=== PATIENT | female | born 1970 | race African-American/Black ===

== ENCOUNTER 2017-05-15 19:22 | Emergency (ER) | payer OTHER ==
[~2017-05-15] VITALS: Ht 165.1 cm; Wt 90.0 kg
[~2017-05-15 19:22] MED LIST: LISI-363 PO
[2017-05-15 19:30] VITALS: BP 182/102; PULSE 87; RESP 15; TEMP 98.4; O2SAT 99
--- NOTE | 2017-05-15 19:33 | PD ---
Physical Exam Date Seen by Provider: May 15, 2017 Time Seen by Provider: 19:31 Narrative 46 yo female hat presents to the ED for evaluation of laceration of left 5th digit. Cannot see laceration due to it being wrapped. Pain is 8/10. Cut it less than 1 hour. No other injuries. Vitals are stable in triage. Awaiting bed placement. Data Data Last Documented VS Vital Signs Date Time Temp Pulse Resp B/P (MAP) Pulse Ox O2 Delivery O2 Flow Rate FiO2 05/15/17 19:30 98.4 87 15 182/102 (128) 99 Room Air [facility] Medical Record Reviewed: Yes Supervised Visit with THUAN: No Erik Mccracken May 15, 2017 19:33
[2017-05-15] MEDS ORDERED: LIDOCAINE HCL 2% 20 ML VIAL ONE (20:40)
[2017-05-15] MEDS: LIDOCAINE HCL 1% 50 ML VIAL INFIL ONE ×2 (20:41→20:42)
--- NOTE | 2017-05-15 20:43 | PD ---
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 This injury occurred prior to arrival. Pain is moderate. She states that she has not had a tetanus shot over 5 years. She was attempting to remove a piece of bottle assembler when it slipped. She states that he attempted to catch it but unfortunately stuck her left little finger into the slicer blade causing a laceration. The patient has a laceration to the lateral aspect of the finger. She denies any numbness or tingling. No focal weakness. No other medical complaints. [facility] Past Medical History Narrative Medical Denies diabetes Medical History: Denies Significant Hx Heart Rhythm Problems: No Cardiac Catheterization: No Cardiovascular Problems: No High Cholesterol: No Congestive Heart Failure: No Diabetes: No Diminished Hearing: No Heparin Induced Thrombocytopen: No Hypertension: Yes Immunizations Current: Yes Myocardial Infarction: No Tetanus Vaccination: Unknown Influenza Vaccination: No ?: Unknown Tubal Ligation: Yes Past Surgical History Surgical History: No Previous Surgery Coronary Artery Bypass Graft: No Family History Family Myocardial Infarction: No Social History Alcohol Use: Yes (SOCC) Tobacco Use: Yes (1/2 PPD) Substance Use: Yes (WEED) Allergies-Medications (Allergen,Severity, Reaction): Coded Allergies: No Known Allergies (Verified , 05/15/17) Reported Meds & Prescriptions Reported Meds & Active Scripts Active Ibuprofen 600 Mg Tab 600 Mg PO Q8H PRN 10 Days Lisinopril 20 mg (Lisinopril) 20 Mg Tab 1 Tab PO DAILY 30 Days Review of Systems Except as stated in HPI: all other systems reviewed are Neg Physical Exam Narrative GENERAL: This is a well-nourished, well-developed patient, in no apparent distress. SKIN: No rashes, ecchymoses or lesions. Warm and dry. HEAD: Atraumatic. Normocephalic. EYES: PERRL, EOMI, no discharge or injection. No scleral icterus. EARS: Clear NOSE: Nasal turbinates appear normal. THROAT: Mucosa pink and moist. Airway patent. NECK: Trachea midline. supple, moves head freely. LUNGS: Clear to auscultation. CV: Regular in rhythm. ABDOMEN: Soft nontender. EXT: No clubbing cyanosis or edema. Patient has a 7 mm x 4 cm avulsion laceration to the lateral aspect of the left little finger from the proximal phalanx distally down to the proximal aspect of the distal phalanx. This goes into the subcutaneous tissues. There is no exposed nerve or blood vessel. Patient is able to fully extend and flex her finger. Intact gross sensation. Good Refill. No tendon or joint injury. Data Data Last Documented VS Vital Signs Date Time Temp Pulse Resp B/P (MAP) Pulse Ox O2 Delivery O2 Flow Rate FiO2 05/15/17 19:30 98.4 87 15 182/102 (128) 99 Room Air Orders Orders Lidocaine 1% Inj (50 Ml) (Xylocaine 1% I (05/15/17 20:45) Bupivacaine Pf 0.5% Inj (Marcaine Pf 0.5 (05/15/17 20:45) Lidocaine 2% Inj (Xylocaine 2% Inj) (05/15/17 20:40) MDM Medical Decision Making Medical Screen Exam Complete: Yes Emergency Medical Condition: Yes Medical Record Reviewed: Yes Differential Diagnosis MDM: High Differential diagnoses: Fracture, sprain, strain, dislocation, contusion, neurovascular injury Narrative Course Patient is aware that this laceration will take up to 2 months to heal. The wound will have to granulate in secondarily. The patient is given tetanus immunization. Patient's given a digital block and a chemical hemostat is applied. Patient is placed in a large bulky dressing. This is left little finger laceration Procedures Procedure Narrative Left little finger laceration: Patient is given a digital block with 1% lidocaine and 0.5% Marcaine. After adequate anesthesia. Fingers prepped and draped in usual sterile fashion. Chemical hemostat Gelfoam applied with hemostasis. A large bulky dressing is applied. Patient tolerated procedure well without complications. Diagnosis Primary Impression: Laceration of left little finger Qualified Codes: S61.217A - Laceration without foreign body of left little finger without damage to nail, initial encounter Patient Instructions: General Instructions Departure Forms: Tests/Procedures, Work Release Special Instructions: No use of the left hand for 1 week. Additional Instructions: Rest. Elevation. Keep the finger clean and dry for the next 2 days. After 2 days he may remove the dressing and perform local wound care with soap, water, Neosporin. Ibuprofen for pain. Keep her hand clean and dry at all times. Anticipate your wound to heal over the next 2 months. Have your wound recheck workman's comp within 1 week. Return to the ER for any problems. Med/Other Pt SpecificInfo: Wound Care Scripts Ibuprofen (Ibuprofen) 600 Mg Tab 600 MG PO Q8H Y for PAIN for 10 Days, #30 TAB 0 Refills Prov: Domingo Pabon MD 05/15/17 Disposition: 01 DISCHARGE HOME Condition: Stable Moe Griffin May 15, 2017 20:43
[2017-05-15] MEDS ORDERED: IBUP-232 PO (20:44)
[2017-05-15] MEDS ORDERED: BUPIVACAINE HCL PF 0.5% 30 ML VIAL INFIL ONE (20:45)
[2017-05-15] MEDS ORDERED: GELATIN 12 MM/7 MM FOAM TOPICAL ONE (21:00)
== END 2017-05-15 21:45 | disposition home or self-care (01) ==
LOC: NEPK 19:22
DX: S61.217A Laceration without foreign body of left little finger without damage to nail, initial encounter (principal); W31.89XA Contact with other specified machinery, initial encounter; Y93.89 Activity, other specified; Y99.0 Civilian activity done for income or pay
CPT/HCPCS: 64450

== ENCOUNTER 2017-12-18 19:51 | Emergency (ER) | payer OTHER ==
[~2017-12-18] VITALS: Ht 165.1 cm; Wt 87.5 kg
[2017-12-18 19:51] VITALS: BP 168/91; PULSE 100; RESP 18; TEMP 98.4; O2SAT 98
[~2017-12-18 19:51] MED LIST changes: +IBUP-232 PO
--- NOTE | 2017-12-18 20:03 | PD ---
HPI Chief Complaint: Injury Time Seen by Provider: 20:00 Travel History International Travel<30 days: No Contact w/Intl Traveler<30days: No Traveled to known affect area: No History of Present Illness HPI Patient comes emergency department complaining of right fourth toe pain that began 2 days ago after she accidentally kicked the corner of the couch. Patient describes pain as throbbing-like in nature and radiates proximally. Pain is worse with walking and palpation. Patient is tried icing and using over -the-counter ibuprofen with little no improvement of pain. Severity is mild. PFSH Past Medical History Heart Rhythm Problems: No Cardiac Catheterization: No Cardiovascular Problems: No High Cholesterol: No Congestive Heart Failure: No Diabetes: No Diminished Hearing: No Heparin Induced Thrombocytopen: No Hypertension: Yes Immunizations Current: Yes Myocardial Infarction: No Tetanus Vaccination: < 5 Years ?: Not Tubal Ligation: Yes Past Surgical History Surgical History: No Previous Surgery Coronary Artery Bypass Graft: No Social History Alcohol Use: Yes (SOCC) Tobacco Use: Yes (1/2 PPD) Substance Use: Yes (OCCASIONAL MARIJUANA) Allergies-Medications (Allergen,Severity, Reaction): Coded Allergies: No Known Allergies (Verified , 05/15/17) Reported Meds & Prescriptions Reported Meds & Active Scripts Active Naprosyn (Naproxen) 500 Mg Tab 500 Mg PO Q12HR PRN Ibuprofen 600 Mg Tab 600 Mg PO Q8H PRN 10 Days Lisinopril 20 mg (Lisinopril) 20 Mg Tab 1 Tab PO DAILY 30 Days Review of Systems Except as stated in HPI: all other systems reviewed are Neg Physical Exam Narrative GENERAL: Well-developed, overly nourished, in no acute distress, and non-ill appearing. SKIN: Focused skin assessment warm and dry. HEAD: Atraumatic. Normocephalic. EYES: Pupils equal and round. EOMI. No scleral icterus. No injection or drainage. ENT: No nasal bleeding or discharge. Mucous membranes pink and moist. NECK: Trachea midline. Supple. No nuclear rigidity. CARDIOVASCULAR: Dorsal pulses 2+, intact, and equal bilaterally. Capillary refill less than 2 seconds. RESPIRATORY: No accessory muscle use. No respiratory distress. MUSCULOSKELETAL: No obvious deformities. No clubbing. No cyanosis. No edema. Full range of motion. Patient reports tenderness to palpation over proximal phalanx right fourth toe. No crepitus. Minimal soft tissue swelling noted. Full range of motion with flexion, extension, abduction, adduction of toes and equal bilaterally. NEUROLOGICAL: Awake and alert. No obvious cranial nerve deficits. Motor grossly within normal limits. Normal speech. PSYCHIATRIC: Appropriate mood and affect; insight and judgment normal. Data Data Last Documented VS Vital Signs Date Time Temp Pulse Resp B/P (MAP) Pulse Ox O2 Delivery O2 Flow Rate FiO2 12/18/17 19:55 Room Air 12/18/17 19:51 98.4 100 18 168/91 (116) 98 Orders Orders Toe (Min 2vws) (12/18/17 ) Splint Or Brace Apply/Monitor (12/18/17 20:19) [employer] Request For Service (12/18/17 20:19) Ed Discharge Order (12/18/17 20:19) Shoe Cast (12/18/17 ) [facility] Medical Decision Making Medical Screen Exam Complete: Yes Emergency Medical Condition: Yes Interpretation(s) X-ray reviewed shows a fracture of the proximal phalanx of fourth toe. Radiologist to over read. Differential Diagnosis Fracture, sprain, contusion, dislocation Narrative Course The patient sustained a fracture of the toe. The distal extremity appears neurovascularly intact, without evidence of neurovascular injury nor compartment syndrome. Tendon exam also was intact. The effected toe was splinted. The patient was discharged on pain medication along with fracture and splint care instructions and given warnings for vascular compromise. The patient is to follow up with insurance account manager. The patient agrees with plan. Patient in no obvious distress upon re-evaluation. All pertinent Radiology result(s) discussed with patient. Patient was asked if they wanted to speak to my attending, which the patient did not wish to do at this time. Any questions/ concerns in reference to patient diagnosis/condition discussed and clarified prior to patient's discharge. Reinforced sheer importance of close follow up with patient's primary physician or primary care clinic and/or podiatry. Instructed patient to return to ED immediately, if symptoms return/worsen. Patient showed understanding of above instructions. Further instructions and recommendations were detailed in discharge paperwork. Patient ambulated without difficulty out of ED at discharge. Diagnosis Primary Impression: Toe fracture, right Qualified Codes: S92.511A - Displaced fracture of proximal phalanx of right lesser toe(s), initial encounter for closed fracture Referrals: Logan Delgado DPM Patient Instructions: General Instructions, Toe Fracture (ED) Departure Forms: Work Release Enter return to work date: December 20, 2017 Additional Instructions: Follow-up with your primary care physician and/or insurance account manager 2448 hrs. for reevaluation. Take all medication as prescribed. Naseem tape toe and wear postop shoe until reevaluated by insurance account manager. Apply ice to affected area 20 min/ h as needed for pain. Return to the emergency department if symptoms get worse. Med/Other Pt SpecificInfo: Prescription(s) given Scripts Naproxen (Naprosyn) 500 Mg Tab 500 MG PO Q12HR Y for PAIN SCALE 1 TO 10, #14 TAB 0 Refills Prov: Micky Cobos MD 12/18/17 Disposition: 01 DISCHARGE HOME Condition: Stable Gabino Smith December 18, 2017 20:03
[2017-12-18] MEDS ORDERED: NAPR500 PO (20:22)
--- NOTE | 2017-12-18 21:13 | RADRPT ---
EXAM DATE/TIME: 12/18/2017 20:07 [facility] COMPARISON: No previous studies available for comparison. INDICATIONS : Right foot, 4th digit pain after stubbing toe. MEDICAL HISTORY : None. SURGICAL HISTORY : None. ENCOUNTER: Initial ACUITY: 2 days PAIN SCORE: 8/10 LOCATION: Right foot,4th digit. FINDINGS: Examination reveals a mildly displaced primarily longitudinal oblique fracture involving the majority of the diaphyseal portion of the fourth toe proximal phalanx. The adjacent articulations appear yair sly intact. CONCLUSION: Mildly displaced oblique fracture of the fourth toe proximal phalanx. Gonzales Golden MD on December 18, 2017 at 21:09 Board Certified Radiologist. This report was verified electronically.
== END 2017-12-18 20:42 | disposition home or self-care (01) ==
LOC: NEPK 19:51
DX: S92.511A Displaced fracture of proximal phalanx of right lesser toe(s), initial encounter for closed fracture (principal); W22.03XA Walked into furniture, initial encounter
CPT/HCPCS: 73660; 99283; L3260

== ENCOUNTER 2018-01-19 18:22 | Emergency (ER) | payer OTHER ==
[~2018-01-19] VITALS: Ht 66 cm; Wt 91.0 kg
[~2018-01-19 18:22] MED LIST changes: +NAPR500 PO
[2018-01-19 18:27] VITALS: BP 155/91; PULSE 99; RESP 18; TEMP 98.8; O2SAT 99
== END 2018-01-19 19:11 | disposition left against medical advice (07) ==
LOC: NED 18:22
DX: M79.646 Pain in unspecified finger(s) (principal); Z53.21 Procedure and treatment not carried out due to patient leaving prior to being seen by health care provider
CPT/HCPCS: 99281

== ENCOUNTER 2018-01-19 19:31 | Emergency (ER) | payer OTHER ==
[~2018-01-19] VITALS: Ht 165.1 cm; Wt 93.4 kg
[2018-01-19 19:34] VITALS: BP 148/92; PULSE 90; RESP 18; TEMP 98.5; O2SAT 98
--- NOTE | 2018-01-19 20:41 | PD ---
HPI Chief Complaint: Laceration/Skin Injury Time Seen by Provider: 19:53 Travel History International Travel<30 days: No Contact w/Intl Traveler<30days: No Traveled to known affect area: No History of Present Illness HPI 47-year-old female here with laceration to the right thumb. She reports well during this is she cut the thumb on the edge of a chipped glass. Does not believe there is any retained foreign body. She is full range of motion and normal sensation of the thumb. She has pain at the site of the laceration which is mild to moderate in severity. No aggravating or alleviating factors. Tetanus immunization is up-to-date. 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 Tubal Ligation: Yes Past Surgical History Coronary Artery Bypass Graft: No Social History Alcohol Use: Yes (SOCC) Tobacco Use: Yes (1/2 PPD) Substance Use: Yes (OCCASIONAL MARIJUANA) Allergies-Medications (Allergen,Severity, Reaction): Coded Allergies: No Known Allergies (Verified Adverse Reaction, Unknown, 01/19/18) Reported Meds & Prescriptions Reported Meds & Active Scripts Active No Active Prescriptions or Reported Medications Review of Systems Except as stated in HPI: all other systems reviewed are Neg General / Constitutional: No: Fever Eyes: No: Visual changes HENT: No: Headaches Cardiovascular: No: Chest Pain or Discomfort Respiratory: No: Shortness of Breath Physical Exam Narrative GENERAL: Alert and well-appearing 39-year-old female SKIN: Warm and dry. HEAD: Normocephalic. EYES: No injection or drainage. NECK: Supple CARDIOVASCULAR: Regular rate and rhythm without murmurs, gallops, or rubs. RESPIRATORY: Breath sounds equal bilaterally. No accessory muscle use. GASTROINTESTINAL: Abdomen soft, non-tender, nondistended. MUSCULOSKELETAL: No cyanosis, or edema. Right hand: Laceration to the dorsal aspect of the right thumb. No foreign body. No tendon or vascular injury. Normal sensation distally. Cap refill intact. Is able to flex and extend the thumb against resistance. Data Data Last Documented VS Vital Signs Date Time Temp Pulse Resp B/P (MAP) Pulse Ox O2 Delivery O2 Flow Rate FiO2 01/19/18 19:34 98.5 90 18 148/92 (110) 98 [facility] Medical Decision Making Medical Screen Exam Complete: Yes Emergency Medical Condition: Yes Differential Diagnosis Finger laceration, tendon laceration, ligamental injury Narrative Course 47-year-old female with a laceration to the right thumb. Extremities neurovascularly intact. No evidence of foreign body, tendon injury, vascular injury. Laceration repair performed. Patient tolerated procedure well. Diagnosis Primary Impression: Thumb laceration Qualified Codes: S61.011A - Laceration without foreign body of right thumb without damage to nail, initial encounter Referrals: Primary Care Physician Additional Instructions: Sutures need to be removed in 7-10 days. Keep the dressing in place for 24 hours. Do not submerge the wound in water. Scripts No Active Prescriptions or Reported Meds Disposition: 01 DISCHARGE HOME Condition: Stable Alba Harrison Jan 19, 2018 20:41
== END 2018-01-19 21:15 | disposition home or self-care (01) ==
LOC: PHEFT 19:31
DX: S61.011A Laceration without foreign body of right thumb without damage to nail, initial encounter (principal); F17.200 Nicotine dependence, unspecified, uncomplicated; F12.90 Cannabis use, unspecified, uncomplicated; I10 Essential (primary) hypertension; W25.XXXA Contact with sharp glass, initial encounter
CPT/HCPCS: 12001